=== PATIENT | male | born 1950 | race Two or more races ===

== ENCOUNTER 2022-12-19 21:35 | Emergency (ER) | payer MEDICARE ==
[~2022-12-19] VITALS: Ht 165.1 cm; Wt 79.4 kg
--- NOTE | 2022-12-19 23:00 | NUR ---
Patient A/o x 3. NAD noted. Sitting in wheelchair. No signs of labored breathing.
[2022-12-20] MEDS ORDERED: diphenhydrAMINE 25 MG CAP PO ONE ×2 (00:29→00:30)
[2022-12-20 00:41] LABS: HEMATOCRIT 41.9 % (36.7-47.1); MEAN CORPUSCULAR HEMOGLOBIN 30.1 uug (23.8-33.4); MEAN CORPUSCULAR VOLUME 89.5 fL (73.0-96.2); PLATELET COUNT (AUTO) 271 K/uL (152-348)
[2022-12-20 00:52] LABS: CARBON DIOXIDE 28 mmol/L (21-32); CHLORIDE 105 mmol/L (98-107); CREATININE 0.9 mg/dL (0.6-1.3); GLUCOSE 100 mg/dL (74-106); POTASSIUM 3.7 mmol/L (3.5-5.1); UREA NITROGEN, BLOOD 22 mg/dL (7-18)
[2022-12-20 00:58] LABS: ALANINE AMINOTRANSFERASE 33 U/L (16-63); ALKALINE PHOSPHATASE 175 U/L (50-136); ASPARTATE AMINOTRANSFERASE 35 U/L (15-37); BILIRUBIN,TOTAL 0.6 mg/dL (0.2-1.0); TOTAL PROTEIN, SERUM 7.6 g/dL (6.4-8.2)
[2022-12-20] MEDS ORDERED: PERM60CR4 TP (01:26)
--- NOTE | 2022-12-20 01:30 | NUR ---
Attempted to call patient's snf dialing [phone], but this number is not in service.
--- NOTE | 2022-12-20 01:31 | NUR ---
Called , spoke with the advisory internship of the previous skilled nursing patient stayed in. She provided an additional number to reach the new skilled nursing .
--- NOTE | 2022-12-20 01:35 | NUR ---
Called Patient's care home, to notify of d/c. Voicemail recording left, because no one answered.
--- NOTE | 2022-12-20 01:35 | NUR ---
[facility]'s # [phone]
--- NOTE | 2022-12-20 02:30 | NUR ---
Patient moved to room 5A.
--- NOTE | 2022-12-20 04:34 | NUR ---
Patient sleeping. NAD noted. Visible chest rises, no signs of labored breathing.
--- NOTE | 2022-12-20 06:00 | NUR ---
3rd attempt made to contact [facility] transportation, no answer.
--- NOTE | 2022-12-20 06:27 | NUR ---
Patient still sleeping. NAD noted. No signs of labored breathing. Visible chest rises.
--- NOTE | 2022-12-20 07:42 | NUR ---
Attempted to call [facility] once again, left a voicemail.
--- NOTE | 2022-12-20 08:33 | NUR ---
Spoke with Chela from the [facility]. Stated they are unable to provide transportation at this time.
--- NOTE | 2022-12-20 09:29 | NUR ---
Spoke with Diann again. She arranged ride-share car. Assisted pt into ride-share. Pt transported back to [facility].
== END 2022-12-20 09:42 ==
LOC: ER 21:35
DX: R21 Rash and other nonspecific skin eruption (principal); Z88.2 Allergy status to sulfonamides; N17.9 Acute kidney failure, unspecified; R74.8 Abnormal levels of other serum enzymes
CPT/HCPCS: 99283; 80053; 85025; 36415; Q0163; A4663

== ENCOUNTER 2022-12-23 06:42 | Emergency (ER) | payer MEDICARE ==
[~2022-12-23] VITALS: Ht 165.1 cm; Wt 79.4 kg
[~2022-12-23 06:42] MED LIST: PERM60CR4 TP
--- NOTE | 2022-12-23 07:10 | NUR ---
seen and examined by
--- NOTE | 2022-12-23 07:21 | NUR ---
ua collected and sent to lab
[2022-12-23 07:33] LABS: *BILIRUBIN,URIN NEGATIVE (NEGATIVE); *BLOOD, URINE NEGATIVE (NEGATIVE); *CLARITY,URINE CLEAR (CLEAR); *COLOR,URINE YELLOW (YELLOW); *KETONES,URINE NEGATIVE (NEGATIVE); *UROBILINOGEN,URINE 0.2 E.U./dl (NORMAL); LEUKOCYTE ESTERASE ,URINE NEGATIVE (NEGATIVE); NITRITE, URINE NEGATIVE (NEGATIVE); PH,URINE 5.5 (5.0-8.0); UGLUCOSE NEGATIVE (NEGATIVE)
[2022-12-23] MEDS ORDERED: EMOL85CR2 TP (08:11)
[2022-12-23] MEDS ORDERED: DIPH25TA62 PO (08:11)
--- NOTE | 2022-12-23 10:40 | NUR ---
Called [facility], where pt resides, and left a massage. Awaiting call back.
--- NOTE | 2022-12-23 10:42 | NUR ---
BRIEN attempted to call Diann ([phone]) from the [facility] [address] [place] [phone] five times and left a voicemail. BRIEN also attempted to call patient's primary contact, Ms. Laguerre ([phone]) five times and left a voicemail as well. BRIEN spoke with charge nurse, Elsa and she attempted to call twice and left a voicemail. BRIEN informed Dr. Perez.
--- NOTE | 2022-12-23 11:10 | NUR ---
Called [facility] for 2nd time and left a massage notifing them of pt's return to their facility. No call back recieved. Dr Perez made aware.
[2022-12-23 13:07] VITALS: BP 120/80
--- NOTE | 2022-12-23 13:07 | NUR ---
Patient discharged to home in stable condition. Written and verbal after care instructions given. Patient verbalizes understanding of instructions. Stressed follow up or return to ER for worsening s/s.
== END 2022-12-23 13:00 | disposition home or self-care (01) ==
LOC: ER 06:58
DX: S30.0XXA Contusion of lower back and pelvis, initial encounter (principal); R21 Rash and other nonspecific skin eruption; R30.0 Dysuria; E11.9 Type 2 diabetes mellitus without complications; I10 Essential (primary) hypertension; E78.5 Hyperlipidemia, unspecified; Z88.2 Allergy status to sulfonamides; Z79.899 Other long term (current) drug therapy; W18.39XA Other fall on same level, initial encounter; Y93.89 Activity, other specified; Y92.89 Other specified places as the place of occurrence of the external cause; Y99.8 Other external cause status
CPT/HCPCS: A4663